=== PATIENT | female | born 1990 | race Caucasian/White ===

== ENCOUNTER 2020-10-31 06:19 | Inpatient (IN) ==
[2020-10-31] MEDS ORDERED: CITRIC ACID/SODIUM CITRATE 30 ML UDCUP PO ONE (06:28)
[2020-10-31] MEDS ORDERED: FAMOTIDINE 20 MG/2 ML VIAL IV ONE (06:28)
[2020-10-31] MEDS ORDERED: ceFAZolin 2,000 MG in PREMIX 1 EACH IV ONE (06:28)
[2020-10-31] MEDS ORDERED: LACTATED RINGERS 1,000 ML IV SCH ×2 (06:30→09:00)
[2020-10-31] MEDS ORDERED: hydrOXYzine HCL 25 MG/1 ML VIAL IM PRN (06:31)
[2020-10-31] MEDS ORDERED: LACTATED RINGERS 1,000 ML IV ONE ×2 (06:31→08:25)
[2020-10-31] MEDS ORDERED: ONDANSETRON 4 MG/2 ML VIAL IV ONE (06:31)
[2020-10-31] MEDS ORDERED: diphenhydrAMINE 50 MG/1 ML VIAL IV PRN ×2 (06:31)
[2020-10-31] MEDS ORDERED: ONDANSETRON 4 MG/2 ML VIAL ONE (06:42)
[2020-10-31] MEDS ORDERED: BUPIVACAINE SPINAL 0.75% 2 ML AMP SPINAL ONE (06:42)
[2020-10-31] MEDS ORDERED: BUPIVACAINE MPF 0.25% 30 ML VIAL ONE (06:42)
[2020-10-31] MEDS ORDERED: MORPHINE 10 MG/10 ML VIAL ONE (06:43)
[2020-10-31 06:53] LABS: Basophils % 0.3 % (0.0-0.8); Eosinophils # 0.4 10*3/uL (0.0-0.87); Eosinophils % 2.5 % (0.00-10.9); Hematocrit 45.1 VOL% (35.7-47.0); Immature Granulocytes Absolute 0.15 #; Lymphocytes # 2.8 10*3/uL (1.4-4.0); Lymphocytes % 18.9 % (21.3-54.2); Mean Corpuscular HGB Conc 33.3 GM/DL (32-36); Mean Platelet Volume 11.2 FL (9.6-12.0); Monocytes % 8.8 % (1.7-12.7); Neutrophils % 68.5 % (38.7-73.9); Platelet Count 296 T/CUMM (130-400); Red Blood Count 4.65 MC/CUMM (3.8-5.5); Red Cell Distribution Width 12.6 % (9.3-17.3); White Blood Count 14.9 T/CUMM (4-12)
[2020-10-31] MEDS ORDERED: OXYTOCIN/LR 20 UNIT/1,000 ML BAG IV ONE ×2 (06:53→08:39)
[2020-10-31] MEDS ORDERED: TRANEXAMIC ACID 1,000 MG/10 ML VIAL ONE (06:54)
[2020-10-31] MEDS ORDERED: miSOPROStoL 200 MCG TABLET ONE (06:54)
[2020-10-31] MEDS ORDERED: METHYLERGONOVINE 0.2 MG/1 ML AMP ONE (06:55)
[2020-10-31] MEDS ORDERED: CARBOPROST TROMETHAMINE 250 MCG/ML AMP IM ONE (06:55)
[2020-10-31] MEDS ORDERED: SODIUM CHLORIDE 0.9% 0 ML IV ONE (06:56)
[2020-10-31 07:13] LABS: Albumin 3.3 G/DL (3.4-5.0); Bilirubin,Total 0.4 MG/DL (0.2-1.0); Osmolality,Calculated 270.8 MOS/KG (273-304); Potassium 3.1 MMOL/L (3.5-5.1); Total Protein 7.8 G/DL (5.0-7.5)
[2020-10-31] MEDS ORDERED: TRIAMCINOLONE ACETONIDE 40 MG/1 ML VIAL ONE (07:36)
[2020-10-31 08:07] LABS: Cord Venous Blood HCO3 22.8 MMOL/L; Cord Venous Blood PCO2 44.2 MMHG
[2020-10-31] MEDS ORDERED: PHENYLEPHRINE 1 MG/10 ML SYRINGE IV ONE (08:25)
[2020-10-31] MEDS ORDERED: ACETAMINOPHEN 1,000 MG/100 ML VIAL IV ONE (08:25)
[2020-10-31 08:37] LABS: Bilirubin,Urine Negative (Negative); Blood, Urine Negative (Negative); Glucose,Urine (UA) Negative (Negative); Hyaline Casts,Urine 1 /LPF (0-3); Ketones,Urine Negative (Negative); Mucus,Urine Occasional /LPF (Occasional); Nitrite,Urine Negative (Negative); Protein,Urine Negative; RBC,Urine 1 /HPF (0-4); Squamous Epithelial Cell,Urine Occasional /HPF (0-10); Urine Appearance CLEAR (Clear); Urine Color Yellow (Yellow); Urine Specific Gravity 1.019 (1.001-1.035); Urine Urobilinogen < 2.0 EU/DL (0.2-1.0); WBC,Urine 1 /HPF (0-6)
[2020-10-31] MEDS ORDERED: ONDANSETRON 4 MG/2 ML VIAL IV PRN (08:39)
[2020-10-31] MEDS ORDERED: RHO(D) IMMUNE GLOBULIN 300 MCG SYRINGE IM ONE (08:39)
[2020-10-31] MEDS ORDERED: ACETAMINOPHEN 325 MG TABLET PO PRN (08:39)
[2020-10-31] MEDS ORDERED: SIMETHICONE CHEW 80 MG TABLET PO PRN (08:39)
[2020-10-31] MEDS ORDERED: MAGNESIUM HYDROXIDE SUSP 30 ML UDCUP PO PRN (08:39)
[2020-10-31] MEDS ORDERED: TRIAMCINOLONE ACETONIDE 40 MG/1 ML VIAL MISC INJ ONE (09:33)
[2020-10-31] MEDS: oxyCODONE/ACETAMINOPHEN 5-325 MG TABLET PO PRN ×2 (10:44→22:00)
[2020-10-31] MEDS: MULTIVITAMIN (PRENATAL) TABLET PO SCH (12:32)
[2020-10-31] MEDS: IBUPROFEN 800 MG TABLET PO PRN ×2 (12:34→23:00)
[2020-10-31] MEDS: DOCUSATE SODIUM 100 MG CAPSULE PO SCH ×2 (13:00→21:57)
[2020-10-31] MEDS: ceFAZolin 1,000 MG in SYRINGE 1 EACH IV SCH ×2 (15:15→23:40)
[2020-11-01] MEDS: oxyCODONE/ACETAMINOPHEN 5-325 MG TABLET PO PRN ×6 (02:10→22:33)
[2020-11-01 06:30] LABS: Basophils # 0.1 10*3/uL (0.0-0.2); Basophils % 0.3 % (0.0-0.8); Eosinophils # 0.6 10*3/uL (0.0-0.87); Eosinophils % 3.2 % (0.00-10.9); Immature Granulocytes % 0.6 %; Immature Granulocytes Absolute 0.12 #; Lymphocytes # 2.9 10*3/uL (1.4-4.0); Lymphocytes % 15.7 % (21.3-54.2); Mean Corpuscular HGB Conc 33.1 GM/DL (32-36); Mean Corpuscular Volume 97.2 FL (87-102); Mean Platelet Volume 11.2 FL (9.6-12.0); Monocytes % 10.3 % (1.7-12.7); Neutrophils % 69.9 % (38.7-73.9); Platelet Count 254 T/CUMM (130-400); Red Cell Distribution Width 12.6 % (9.3-17.3); White Blood Count 18.5 T/CUMM (4-12)
[2020-11-01 06:32] LABS: Hemoglobin 11.6 GM/DL (12.0-16.0)
[2020-11-01] MEDS: IBUPROFEN 800 MG TABLET PO PRN ×2 (08:45→16:26)
[2020-11-01] MEDS: MULTIVITAMIN (PRENATAL) TABLET PO SCH (08:46)
[2020-11-01] MEDS: DOCUSATE SODIUM 100 MG CAPSULE PO SCH ×2 (08:46→21:04)
[2020-11-02] MEDS: IBUPROFEN 800 MG TABLET PO PRN ×2 (02:03→10:46)
[2020-11-02] MEDS: oxyCODONE/ACETAMINOPHEN 5-325 MG TABLET PO PRN ×3 (02:46→07:53)
[2020-11-02 04:08] VITALS: BP 138/94
[2020-11-02] MEDS: DOCUSATE SODIUM 100 MG CAPSULE PO SCH (07:54)
[2020-11-02] MEDS: MULTIVITAMIN (PRENATAL) TABLET PO SCH (08:00)
== END 2020-11-02 11:28 | disposition home or self-care (01) | DRG 788 ==
LOC: N.LD 06:19
PROVIDERS: ADMIT Obstetrics & Gynecology; ATTEND Obstetrics & Gynecology
PROC: LDCSECT (ICD-10-PCS; 2020-10-31 07:30)